=== PATIENT | female | born 1960 | race Caucasian/White ===

== ENCOUNTER 2016-10-11 12:31 | Inpatient (IN) | payer OTHER ==
[~2016-10-11] VITALS: Ht 180.3 cm; Wt 79.6 kg
[2016-10-11] MEDS ORDERED: SODIUM CHLORIDE 0.9% 100 ML IV ONE (15:24)
[2016-10-11] MEDS ORDERED: CEFTRIAXONE 1 GM VIAL ONE (15:24)
[2016-10-11] MEDS ORDERED: ONDANSETRON 4 MG VIAL IV PRN (16:25)
[2016-10-11] MEDS ORDERED: SALINE FLUSH 10 ML FLUSH PRN (16:25)
[2016-10-11] MEDS ORDERED: Furosemide 40 MG/4 ML VIAL IV ONE (16:25)
[2016-10-11 18:44] VITALS: BP_SYST 112; BP_SYST 116; RESP 20; TEMP 98
[2016-10-11 18:45] VITALS: BMI 26.6
[2016-10-11] MEDS: SALINE FLUSH 10 ML FLUSH SCH (21:13)
[2016-10-11 23:26] VITALS: BP_SYST 127; RESP 18; TEMP 98.9
[2016-10-12] VITALS (11 sets, daily range): BP systolic 110–154; RESP 18–20; TEMP 98–98.6; Ht 180.3 cm; Wt 79.6 kg
[2016-10-12] MEDS: PANTOPRAZOLE 40 MG TAB PO SCH ×3 (00:26→20:13)
[2016-10-12] MEDS: ACETAMINOPHEN 325 MG TAB PO PRN ×3 (00:27→23:13)
[2016-10-12] MEDS: SODIUM CHLORIDE 0.9% FLUSH BAG 500 ML IV SCH (06:05)
[2016-10-12] MEDS ORDERED: MISSING DOSE XX ONE ×2 (09:05→17:25)
[2016-10-12] MEDS ORDERED: Furosemide 40 MG/4 ML VIAL IV ONE (09:25)
[2016-10-12] MEDS: SALINE FLUSH 10 ML FLUSH SCH ×2 (10:47→20:13)
[2016-10-12] MEDS: DUONEB INH PRN ×2 (17:18→22:40)
[2016-10-12] MEDS: NIFEdipine XL 60 MG TAB PO SCH (17:38)
[2016-10-12] MEDS: CETIRIZINE 10 MG TAB PO SCH (17:38)
[2016-10-12] MEDS: ASPIRIN 81 MG CHEW TAB PO SCH (17:38)
[2016-10-12] MEDS: DULoxetine 30 MG CAP PO SCH (17:38)
[2016-10-12] MEDS: BUPROPION XL 150 MG TAB PO SCH (17:39)
[2016-10-12] MEDS: GABAPENTIN 300 MG CAP PO SCH (20:13)
[2016-10-12] MEDS: Atorvastatin 40 MG TAB PO SCH (20:13)
[2016-10-13 03:20] VITALS: BP_SYST 127; RESP 18; TEMP 97.8
[2016-10-13] MEDS: SODIUM CHLORIDE 0.9% FLUSH BAG 500 ML IV SCH (04:51)
[2016-10-13] MEDS: DUONEB INH PRN ×4 (05:00→21:33)
[2016-10-13 07:46] VITALS: BP_SYST 139; RESP 18; TEMP 98.3
[2016-10-13] MEDS: DULoxetine 30 MG CAP PO SCH (08:21)
[2016-10-13] MEDS: CETIRIZINE 10 MG TAB PO SCH (08:21)
[2016-10-13] MEDS: GABAPENTIN 300 MG CAP PO SCH ×2 (08:21→20:39)
[2016-10-13] MEDS: BUPROPION XL 150 MG TAB PO SCH (08:21)
[2016-10-13] MEDS: ASPIRIN 81 MG CHEW TAB PO SCH (08:21)
[2016-10-13] MEDS: PANTOPRAZOLE 40 MG TAB PO SCH ×2 (08:21→20:39)
[2016-10-13] MEDS: SALINE FLUSH 10 ML FLUSH SCH ×2 (08:21→20:39)
[2016-10-13] MEDS: NIFEdipine XL 60 MG TAB PO SCH (08:21)
[2016-10-13] MEDS: Furosemide 40 MG TAB PO SCH (10:43)
[2016-10-13 12:09] VITALS: BP_SYST 133; RESP 18; TEMP 98.7
[2016-10-13 16:11] VITALS: BP_SYST 120; RESP 16; TEMP 98.4
[2016-10-13 19:53] VITALS: BP_SYST 125; RESP 20; TEMP 98.7
[2016-10-13] MEDS ORDERED: MISSING DOSE XX ONE (20:35)
[2016-10-13] MEDS: Atorvastatin 40 MG TAB PO SCH (20:39)
[2016-10-13] MEDS: ACETAMINOPHEN 325 MG TAB PO PRN (20:40)
[2016-10-13] MEDS ORDERED: PANTOPRAZOLE 40 MG TAB PO SCH (21:00)
[2016-10-13 23:14] VITALS: BP_SYST 105; RESP 18; TEMP 98.6
[2016-10-14 01:00] VITALS: BP_SYST 78; RESP 16; TEMP 96.5
[2016-10-14] MEDS: DUONEB INH PRN ×5 (02:14→18:18)
[2016-10-14 04:43] VITALS: BP_SYST 123; RESP 18; TEMP 98.5
[2016-10-14] MEDS ORDERED: MISSING DOSE XX ONE ×2 (05:55→07:45)
[2016-10-14] MEDS: SODIUM CHLORIDE 0.9% FLUSH BAG 500 ML IV SCH (06:00)
[2016-10-14 07:55] VITALS: BP_SYST 135; RESP 18; TEMP 98.4
[2016-10-14] MEDS: SALINE FLUSH 10 ML FLUSH SCH (08:17)
[2016-10-14] MEDS: Furosemide 40 MG TAB PO SCH (08:18)
[2016-10-14] MEDS: ASPIRIN 81 MG CHEW TAB PO SCH (08:19)
[2016-10-14] MEDS: GABAPENTIN 300 MG CAP PO SCH (08:19)
[2016-10-14] MEDS: NIFEdipine XL 60 MG TAB PO SCH (08:19)
[2016-10-14] MEDS: DULoxetine 30 MG CAP PO SCH (08:19)
[2016-10-14] MEDS: CETIRIZINE 10 MG TAB PO SCH (08:19)
[2016-10-14] MEDS: BUPROPION XL 150 MG TAB PO SCH (08:20)
[2016-10-14] MEDS: PANTOPRAZOLE 40 MG TAB PO SCH ×2 (08:21→17:20)
[2016-10-14 11:42] VITALS: BP_SYST 140; RESP 18; TEMP 98.3
[2016-10-14 15:08] VITALS: BP_SYST 132; RESP 18; TEMP 98
[2016-10-14 16:07] VITALS: BP_SYST 132; RESP 18; TEMP 98
== END 2016-10-14 18:40 | DRG 811 ==
LOC: ENRESERVDT → ENRESERVTM → ER 12:31 → EDBD 12:31 → ENPENDDIS 16:47 → EMR 16:47 → 4THE 17:58
PROVIDERS: ADMIT Internal Medicine; ATTEND Internal Medicine
DX: D64.9 Anemia, unspecified (principal); I50.33 Acute on chronic diastolic (congestive) heart failure; N17.9 Acute kidney failure, unspecified; I27.2 Other secondary pulmonary hypertension; M34.9 Systemic sclerosis, unspecified; M32.9 Systemic lupus erythematosus, unspecified; I13.0 Hypertensive heart and chronic kidney disease with heart failure and stage 1 through stage 4 chronic kidney disease, or unspecified chronic kidney disease; N18.9 Chronic kidney disease, unspecified; R53.83 Other fatigue; I73.00 Raynaud's syndrome without gangrene; B19.20 Unspecified viral hepatitis C without hepatic coma; Z96.649 Presence of unspecified artificial hip joint; Z87.891 Personal history of nicotine dependence; Z79.82 Long term (current) use of aspirin
CPT/HCPCS: 36415; 36430; 71010; 71020; 80048; 80053; 80307; 81003; 82274; 82553; 82947; 83605; 83880; 84484; 85025; 86850; 86870; 86900; 86901; 86902; 86922; 87040; 87804; 93005; 93306; 94640; 94799; 96365; 99223; 99233; 99239